=== PATIENT | female | born 1960 | race Caucasian/White ===

== ENCOUNTER → 2023-04-19 14:38 | Outpatient (CLI) | payer OTHER, SELFPAY ==
--- NOTE | ~2023-04-19 | XR_ITS ---
EXAMINATION: XR foot LT min 3V DATE: 04/19/2023 14:58 INDICATION: 3 weeks of dorsal foot pain TECHNIQUE: Dorsoplantar, two oblique and lateral views of the left foot were obtained. COMPARISON: None. FINDINGS: Alignment is normal. No fracture. Mild polyarticular osteoarthritis at the first metatarsophalangeal and a few tarsal metatarsal and interphalangeal joints. No erosions or periosteal reaction. Small jermain ntar calcaneal spur. Soft tissues are unremarkable. The left ankle joint effusion. IMPRESSION: 1. 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 No acute osseou s abnormality. Reviewed, dictated and finalized at location A. IMPRESSION: 1. Small plantar calcaneal spur and mild osteoarthritis at the left fore and mi dfoot. No acute osseous abnormality.
== END ==
PROVIDERS: PCP Nurse Practitioner Family; Visit Provider Nurse Practitioner Family
DX: M77.32 Calcaneal spur, left foot (principal); M19.072 Primary osteoarthritis, left ankle and foot
CPT/HCPCS: 73630